=== PATIENT | female | born 1995 | race Caucasian/White ===

== ENCOUNTER 2019-05-15 21:56 | Emergency (ER) | payer BC ==
[2019-05-15] MEDS ORDERED: Lidocaine 1% with EPINEPHrine 1:100,000 20 ML MDV INFILT ONE (22:14)
--- NOTE | 2019-05-15 22:50 | EDM.PDOC ---
ED HPI GENERAL MEDICAL PROBLEM - General Stated Complaint: LACERATION TO BACK OF HEAD Time Seen by Provider: 05/15/19 22:00 Source of Information: Reports: Patient History Limitations: Reports: No Limitations - History of Present Illness INITIAL COMMENTS - FREE TEXT/NARRATIVE: Pt. states that she fell backward, striking the back of her head on a heater. Brief positive LOC. Pt. states that she has a history of previous closed head injury in the past. States that her tetanus is UTD. Denies any neck pain. No back or chest pain. No nausea or vomiting. Pt. denies any blurred vision. No difficulty with speech or ambulation. Pt. states that she has had approx. 10 alcoholic beverages tonight. Onset: Today Onset Date: 05/15/19 Location: Reports: Head Quality: Reports: Dull Parietal Head Pain Score (Numeric/FACES): 4 - Related Data Allergies Allergy/AdvReac Type Severity Reaction Status Date / Time No Known Allergies Allergy Verified 05/15/19 23:25 Home Meds: Home Meds . [No Known Home Meds] 05/15/19 [History] ED ROS GENERAL - Review of Systems Review Of Systems: See Below Constitutional: Reports: No Symptoms HEENT: Reports: Other (see hpi) Respiratory: Reports: No Symptoms Cardiovascular: Reports: No Symptoms Endocrine: Reports: No Symptoms GI/Abdominal: Reports: No Symptoms. Denies: Nausea, Vomiting : Reports: No Symptoms Musculoskeletal: Reports: No Symptoms Skin: Reports: No Symptoms Neurological: Reports: Headache Psychiatric: Reports: No Symptoms Hematologic/Lymphatic: Reports: No Symptoms Immunologic: Reports: No Symptoms ED EXAM, GENERAL - Physical Exam Exam: See Below Exam Limited By: No Limitations General Appearance: Alert, WD/WN, No Apparent Distress Eye Exam: Bilateral Eye: Conjunctival Injection, EOMI, PERRL Nose: Normal Inspection, No Blood Head: Other (3 cm laceration to R parietal area of the head. No crepitus noted.) Neck: Normal Inspection, Supple, Non-Tender, Full Range of Motion Respiratory/Chest: No Respiratory Distress Back Exam: Normal Inspection, Full Range of Motion Extremities: Normal Inspection Neurological: Alert, Oriented, CN II-XII Intact, Normal Cognition, Normal Gait, Normal Reflexes, No Motor/Sensory Deficits Psychiatric: Normal Affect, Other (Initially resistive to care and initially refused CT. Pt. later allowed for CT scan of head.) Skin Exam: Warm, Dry, Intact, Normal Color, No Rash ED GENERAL MEDICAL PROCEDURES - Laceration/Wound Repair Right Lateral Head Lac/wound length in cm: 3 Appearance: Subcutaneous Skin Prep: Chlorhexidine (Hibiciens), Saline Exploration/Debridement/Repair: Wound Explored, No Foreign Material Found Closed with: Velasquez # of Sutures: 4 Course - Vital Signs Last Recorded V/S: Last Vital Signs Temp 37.7 C 05/15/19 22:00 Pulse 113 H 05/15/19 22:00 Resp 12 05/15/19 22:00 BP 140/60 05/15/19 22:00 Pulse Ox 97 05/15/19 22:00 - Orders/Labs/Meds Orders: Active Orders 24 hr Category Date Time Status Head wo Cont [CT] Stat Exams 05/15/19 22:15 Taken Meds: Medications Discontinued Medications Generic Name Dose Route Start Last Admin Trade Name Freq PRN Reason Stop Dose Admin Lidocaine/Epinephrine 20 ml 05/15/19 22:14 Xylocaine 1% With Epinephrine 1:100,000 INFILT 05/15/19 22:15 ONETIME ONE Departure - Departure Time of Disposition: 23:11 Disposition: Home, Self-Care 01 Clinical Impression: Laceration - Discharge Information Instructions: Head Injury, Adult, Laceration Care, Adult Referrals: PCP,Unknown [Ordering Only Provider] - Forms: ED Department Discharge Additional Instructions: Home to rest. Velasquez out in clinic in 10 days. You can wash your hair tonight, but after that, keep dry for 24 hours. Tylenol and ibuprofen for discomfort. Return to ER if you have increased headache, difficulty walking/speaking, or confusion. - My Orders Last 24 Hours: My Active Orders 05/15/19 22:15 Head wo Cont [CT] Stat - Assessment/Plan Last 24 Hours: My Active Orders 05/15/19 22:15 Head wo Cont [CT] Stat Plan: Home to rest. Velasquez out in clinic in 10 days. You can wash your hair tonight, but after that, keep dry for 24 hours. Tylenol and ibuprofen for discomfort. Return to ER if you have increased headache, difficulty walking/speaking, or confusion.
--- NOTE | 2019-05-17 15:16 | CT ---
[id number] CT/CT Head WO IV EXAM: CT Head WO IV CLINICAL DATA: TRAUMA COMPARISON: NO PREVIOUS SIMILAR EXAM IS AVAILABLE FOR COMPARISON. FINDINGS: There is no mass or mass effect. There is no hemorrhage or hydrocephalus. There are no extra-axial fluid collections. There are no sites of abnormal attenuation. IMPRESSION: NO PLAIN CT EVIDENCE OF ACUTE INTRACRANIAL PROCESS. Amarjit Orantes MD 05/17/19 [id number] Thank you for allowing us to participate in the care of your patient.
== END 2019-05-15 23:11 | disposition home or self-care (01) ==
LOC: VM.ED 21:56
DX: S01.01XA Laceration without foreign body of scalp, initial encounter (principal); W01.198A Fall on same level from slipping, tripping and stumbling with subsequent striking against other object, initial encounter
CPT/HCPCS: 12002; 70450; 99283-25